=== PATIENT | male | born 1960 | race Caucasian/White ===

== ENCOUNTER 2018-08-30 07:34 | Emergency (ER) | payer MEDICAID ==
[~2018-08-30] VITALS: Ht 167.6 cm; Wt 79.4 kg
[2018-08-30 07:41] VITALS: BP 129/82
--- NOTE | 2018-08-30 07:45 | NUR ---
PATIENT PRESENTS TO ED WITH C/O DYSURIA, SUBJECTIVE FEVERS, BL LOWER BACK BACK, AND N/V/D X 7DAYS. PATIENT DENIES ANY ABD PAIN OR FLANK PAIN. . PT STATES HE TOOK CIPRO 500MG X5 DAYS Q12H. DENIES N/V/D; SKIN IS PINK/WARM/DRY; AAOX4 WITH EVEN AND STEADY GAIT; LUNGS CLEAR BL; HR EVEN AND REGULAR; PT DENIES ANY FEVER, CP, SOB, OR COUGH AT THIS TIME; PATIENT STATES PAIN OF 9/10 AT THIS TIME; VSS; PATIENT POSITIONED FOR COMFORT; HOB ELEVATED; BEDRAILS UP X2; BED DOWN. ER MD MADE AWARE OF PT STATUS.
--- NOTE | 2018-08-30 08:23 | NUR ---
Patient being evaluated by physician at bedside.
[2018-08-30] MEDS ORDERED: NACL 0.9% 1,000 ML IV ONE (08:25)
[2018-08-30] MEDS ORDERED: ONDANSETRON 4 MG/2 ML VIAL IVP ONE (08:40)
[2018-08-30] MEDS ORDERED: MORPHINE SULFATE 2 MG/ML SYR IVP ONE (08:40)
[2018-08-30 08:59] LABS: BASOPHILS % (AUTO) 0.1 % (0.0-2.0); EOSINOPHILS # (AUTO) 0.1 K/uL (0-0.4); EOSINOPHILS % (AUTO) 0.5 % (0.0-4.0); HEMATOCRIT 43.1 % (36-52); HEMOGLOBIN 14.3 g/dL (12.0-18.0); LYMPHOCYTES # (AUTO) 0.5 K/uL (2.0-11.5); LYMPHOCYTES % (AUTO) 3.1 % (20.5-51.1); MEAN CORPUSCULAR HEMOGLOBIN 30 pg (27-31); MEAN CORPUSCULAR HGB CONC 33 g/dL (33-37); MEAN CORPUSCULAR VOLUME 90.4 fL (80-94); MONOCYTES # (AUTO) 0.2 K/uL (0.8-1.0); MONOCYTES % (AUTO) 1.2 % (1.7-9.3); NEUTROPHILS # (AUTO) 15.5 K/uL (1.8-7.7); NEUTROPHILS % (AUTO) 95.1 % (42.2-75.2); PLATELET COUNT (AUTO) 115 K/uL (140-450); RED BLOOD CELL COUNT(AUTO) 4.77 MIL/uL (4.20-6.10); RED CELL DISTRIBUTION WIDTH 14.6 % (11.6-13.7); WHITE BLOOD COUNT (AUTO) 16.3 K/uL (4.8-10.8)
[2018-08-30 09:14] LABS: ANION GAP 14.8 (8-16); CARBON DIOXIDE 24.6 mmol/L (21-32); POTASSIUM 3.4 mmol/L (3.5-5.1)
[2018-08-30 09:16] LABS: APPEARANCE,URINE CLOUDY (CLEAR); BILIRUBIN,URINE NEGATIVE (NEGATIVE); BLOOD, URINE LARGE (NEGATIVE); COLOR,URINE YELLOW (YELLOW); LEUKOCYTE ESTERASE ,URINE SMALL (NEGATIVE); NITRITE, URINE NEGATIVE (NEGATIVE); UGLUCOSE NEGATIVE (NEGATIVE)
[2018-08-30 09:27] LABS: RBC,URINE 20-50 /HPF (0-5)
[2018-08-30 09:32] LABS: FINE GRANULAR CASTS,URINE 0-10 /LPF (None Seen); HYALINE CASTS, URINE 0-10 /LPF (None Seen)
[2018-08-30 09:34] LABS: WBC,URINE 80-100 /HPF (0-5)
[2018-08-30 09:36] LABS: ALBUMIN 3.1 g/dL (3.4-5.0)
[2018-08-30] MEDS ORDERED: LEVOFLOXACIN 500 MG/D5W PREMIX 100 ML IV ONE (09:45)
[2018-08-30] MEDS ORDERED: NACL 0.9% 2,500 ML IV ONE (09:45)
[2018-08-30 09:46] LABS: PROTHROMBIN TIME 14.3 secs (10.8-13.4)
--- NOTE | 2018-08-30 11:50 | NUR ---
SPOKE TO NICHELLE GRAYSON AT [facility] AND GAVE PATIENT REPORT
[2018-08-30 12:22] VITALS: BP 132/75
--- NOTE | 2018-08-30 12:23 | NUR ---
Patient to be transferred to [facility] . Is being transferred due to INSURANCE. Receiving facility has accepting physician and available space. ER physician has signed transfer form. Patient or responsible green party has agreed to transfer and signed form. Patient belongings inventoried and will be sent with patient. Copy of nursing notes, lab reports, EKG, Physicians Orders and X-rays to be sent with patient. Report called to [employer] at receiving facility.
--- NOTE | 2018-08-31 00:15 | NUR ---
Called number [phone], to instruct pt to return to ER, but no answer. Left message on voice mail to call ER immediately.
--- NOTE | 2018-08-31 00:32 | NUR ---
Lab report faxed to [facility] nurses station where pt was transferred to.
--- NOTE | 2018-08-31 11:10 | NUR ---
patient blood culture returned with gram negative bacilli patient was tranfered to [facility] and lab report faxed by overnight caregiver charge zonia delgado
== END 2018-08-30 12:28 | disposition home or self-care (01) ==
LOC: MED 07:34
DX: N39.0 Urinary tract infection, site not specified (principal); K62.89 Other specified diseases of anus and rectum; D68.9 Coagulation defect, unspecified; E87.2 Acidosis; N28.9 Disorder of kidney and ureter, unspecified; D72.829 Elevated white blood cell count, unspecified
CPT/HCPCS: 36415; 71045; 74176; 80053; 81001; 83605; 85025; 85610; 85730; 87040; 87086; 87186; 96361; 96365; 96375; 99285; J1956; J2270; J2405; J7030; Q0092

== ENCOUNTER 2022-05-25 16:09 | Emergency (ER) | payer MEDICAID ==
[~2022-05-25] VITALS: Ht 170.2 cm; Wt 83.5 kg
[~2022-05-25 16:09] MED LIST: DOCU-61 PO; HYDR-5092 PO; IBUP-1842 PO
[2022-05-25 16:39] VITALS: BP 125/70
[2022-05-25 17:12] LABS: BASOPHILS # (AUTO) 0.1 K/uL (0.00-0.22); BASOPHILS % (AUTO) 0.4 % (0.0-2.0); EOSINOPHILS # (AUTO) 0.1 K/uL (0-0.4); EOSINOPHILS % (AUTO) 0.9 % (0.0-4.0); HEMATOCRIT 28.8 % (36-52); HEMOGLOBIN 8.7 g/dL (12.0-18.0); LYMPHOCYTES # (AUTO) 1.8 K/uL (2.0-11.5); LYMPHOCYTES % (AUTO) 13.8 % (20.5-51.1); MEAN CORPUSCULAR HEMOGLOBIN 21 pg (27-31); MEAN CORPUSCULAR HGB CONC 30 g/dL (33-37); MEAN CORPUSCULAR VOLUME 68.3 fL (80-94); MONOCYTES # (AUTO) 0.9 K/uL (0.8-1.0); MONOCYTES % (AUTO) 7.2 % (1.7-9.3); NEUTROPHILS # (AUTO) 10.1 K/uL (1.8-7.7); NEUTROPHILS % (AUTO) 77.7 % (42.2-75.2); PLATELET COUNT (AUTO) 664 K/uL (140-450); RED BLOOD CELL COUNT(AUTO) 4.21 MIL/uL (4.20-6.10); RED CELL DISTRIBUTION WIDTH 16.7 % (11.6-13.7); WHITE BLOOD COUNT (AUTO) 13.1 K/uL (4.8-10.8)
[2022-05-25 17:15] LABS: APPEARANCE,URINE CLEAR (CLEAR); BILIRUBIN,URINE NEGATIVE (NEGATIVE); BLOOD, URINE NEGATIVE (NEGATIVE); COLOR,URINE YELLOW (YELLOW); LEUKOCYTE ESTERASE ,URINE NEGATIVE (NEGATIVE); NITRITE, URINE NEGATIVE (NEGATIVE); UGLUCOSE NEGATIVE (NEGATIVE)
[2022-05-25] MEDS ORDERED: KETOROLAC 30 MG/ML VIAL IVP ONE (17:15)
[2022-05-25] MEDS ORDERED: ONDANSETRON 4 MG/2 ML VIAL IVP ONE (17:15)
[2022-05-25] MEDS ORDERED: NACL 0.9% 1,000 ML IV ONE (17:15)
[2022-05-25 17:41] LABS: ALBUMIN 3.1 g/dL (3.4-5.0); CARBON DIOXIDE 27.8 mmol/L (21-32); CREATININE 1.1 mg/dL (0.6-1.3); POTASSIUM 3.8 mmol/L (3.5-5.1); TOTAL BILIRUBIN 0.5 mg/dL (0.0-1.0)
[2022-05-25] MEDS ORDERED: ONDANSETRON 4 MG ODT PO ONE (18:00)
[2022-05-25] MEDS ORDERED: KETOROLAC 30 MG/ML VIAL IM ONE (18:00)
[2022-05-25 19:45] VITALS: BP 126/70
== END 2022-05-25 19:48 | disposition home or self-care (01) ==
LOC: MED 16:09
DX: A08.4 Viral intestinal infection, unspecified (principal); I10 Essential (primary) hypertension; E78.5 Hyperlipidemia, unspecified
CPT/HCPCS: 36415; 80053; 81003; 85025; 96372; 99283; J1885; Q0162; J2405